=== PATIENT | male | born 2005 | race African-American/Black ===

== ENCOUNTER 2024-02-25 17:50 | Emergency (ER) | payer SELFPAY ==
[~2024-02-25] VITALS: Ht 180.3 cm; Wt 92.8 kg
[2024-02-25] MEDS ORDERED: IBUP200C25 PO (18:01)
[2024-02-25 18:24] LABS: HEMATOCRIT 42.7 % (42.0-52.0); HEMOGLOBIN 14.3 g/dl (13.5-17.5); MEAN CORPUSCULAR HEMOGLOBIN 28.3 pg (27.0-33.0); MEAN CORPUSCULAR HGB CONC 33.5 g/dl (32.0-36.5); MEAN CORPUSCULAR VOLUME 84.4 fl (80.0-96.0); PLATELET COUNT, AUTOMATED 212 10^3/uL (150-450); RED BLOOD COUNT 5.06 10^6/uL (4.30-6.10); WHITE BLOOD COUNT 4.8 10^3/uL (4.0-10.0)
[2024-02-25 18:34] LABS: ERYTHROCYTE SEDIMENTATION RATE 16 mm/hr (0-15)
[2024-02-25 18:50] LABS: MAGNESIUM LEVEL 1.7 MG/DL (1.8-2.4)
[2024-02-25 18:55] LABS: ATYPICAL LYMPH 10 % (0-5); BASOPHILS 4 % (0-1); EOSINOPHILS 1 % (0-3); LYMPHOCYTES 37 % (16-44); MONOCYTES 8 % (0-5); NEUTROPHILS 40 % (28-66); PLATELET ESTIMATE NORMAL (NORMAL)
[2024-02-25 19:00] LABS: CPK CREATINE PHOSPHOKINASE 965 U/L (46-171)
[2024-02-25 19:24] LABS: MONO SCRN NEGATIVE (NEGATIVE)
[2024-02-25] MEDS: MAGNESIUM OXIDE 400MG TAB (MAG-OX) PO ONE (19:25)
[2024-02-25] MEDS: TOPIRAMATE (TopAMAX) 25 MG TAB PO ONE (19:25)
[2024-02-25] MEDS: NS 1,000 ML IV ONE (19:25)
[2024-02-25] MEDS ORDERED: TOPA50TA8 PO (20:11)
[2024-02-25 20:30] VITALS: BP 155/88; TEMP 98.1; O2SAT 100
== END 2024-02-25 20:30 | disposition home or self-care (01) ==
LOC: M ED 18:53
DX: G44.84 Primary exertional headache (principal); R00.1 Bradycardia, unspecified; Z91.013 Allergy to seafood; Z79.899 Other long term (current) drug therapy; Z79.1 Long term (current) use of non-steroidal anti-inflammatories (NSAID)